=== PATIENT | female | born 1955 | race Caucasian/White ===

== ENCOUNTER → 2022-01-09 | Outpatient (CLI) | payer MEDICARE, OTHER | LOC: KOH-I 01-08 08:15 | DX: I65.23 Occlusion and stenosis of bilateral carotid arteries (principal); E55.9 Vitamin D deficiency, unspecified; R26.89 Other abnormalities of gait and mobility; R53.83 Other fatigue; G60.9 Hereditary and idiopathic neuropathy, unspecified; R41.3 Other amnesia; R44.3 Hallucinations, unspecified | CPT/HCPCS: 93880 ==

== ENCOUNTER → 2022-03-04 | Outpatient (CLI) | payer MEDICARE, OTHER | LOC: KOH-I 02-25 15:00 | DX: R41.3 Other amnesia (principal) | CPT/HCPCS: 70450 ==